=== PATIENT | male | born 1985 | race Caucasian/White ===

== ENCOUNTER 2018-02-04 01:24 | Emergency (ER) | payer OTHER ==
[~2018-02-04] VITALS: Ht 180.3 cm; Wt 81.7 kg
[~2018-02-04 01:24] MED LIST: NORCO 5-325 TA1 EACH PO
[2018-02-04] MEDS ORDERED: TRUVADA1 EAC1 (01:39)
[2018-02-04 04:36] LABS: HEMOGLOBIN 16.5 gm/dL (14.0-18.0); MCH 31.2 pg (26.0-34.0); MCHC 33.6 g/dL (28.0-37.0); MCV 92.8 fL (80.0-100.0); MPV 7.8 fl. (7.2-11.1); NUCLEATED RBCS 0 /100WBC; PLATELET COUNT* 255 thou/uL (150-400); RBC 5.28 mil/uL (4.50-6.00); RDW-CV 13.3 % (10.5-14.5); WBC 18.8 thou/uL (4.0-11.0)
[2018-02-04 04:41] LABS: CALCIUM 9.1 mg/dL (8.5-10.1); CREATININE 1.3 mg/dL (0.6-1.3); POTASSIUM 3.7 mmol/L (3.5-5.1)
[2018-02-04 04:46] LABS: ALBUMIN 3.8 g/dL (3.4-5.0); TOTAL BILIRUBIN 0.7 mg/dL (<0.1-1.0); TOTAL PROTEIN 7.4 g/dL (6.4-8.2)
[2018-02-04 05:57] LABS: ABSOLUTE LYMPHOCYTES 1.7 thou/uL (0.8-5.3); ABSOLUTE MONOCYTES 1.7 thou/uL (0.0-1.2); ABSOLUTE NEUTROPHILS 15.4 thou/uL (1.6-8.1); PLATELET ESTIMATE ADEQUATE
[2018-02-04] MEDS ORDERED: KEFLEX500 M1 PO ×2 (06:32→07:49)
[2018-02-04] MEDS ORDERED: NORCO 5-325 TA1 EACH PO ×2 (06:32→07:49)
[2018-02-04] MEDS ORDERED: FLEXERIL PO ×2 (06:32→07:49)
[2018-02-04 07:59] VITALS: BP 95/46
== END 2018-02-04 08:26 | disposition home or self-care (01) ==
LOC: M.ERS 01:24
PROVIDERS: Emergency Medicine
DX: S81.812A Laceration without foreign body, left lower leg, initial encounter (principal); S81.811A Laceration without foreign body, right lower leg, initial encounter; S30.810A Abrasion of lower back and pelvis, initial encounter; S40.212A Abrasion of left shoulder, initial encounter; S50.812A Abrasion of left forearm, initial encounter; S40.211A Abrasion of right shoulder, initial encounter; I10 Essential (primary) hypertension; V89.2XXA Person injured in unspecified motor-vehicle accident, traffic, initial encounter; Y93.89 Activity, other specified; Y92.89 Other specified places as the place of occurrence of the external cause; Y99.8 Other external cause status

== ENCOUNTER → 2018-02-13 | Outpatient (CLI) | payer OTHER ==
[~2018-02-13] MED LIST changes: +FLEXERIL PO; +KEFLEX500 M1 PO; +TRUVADA1 EAC1
== END ==
LOC: M.WC 01:01
DX: T81.33XA Disruption of traumatic injury wound repair, initial encounter (principal); T22.212A Burn of second degree of left forearm, initial encounter; T31.0 Burns involving less than 10% of body surface; T22.211A Burn of second degree of right forearm, initial encounter; T22.252A Burn of second degree of left shoulder, initial encounter; T22.251A Burn of second degree of right shoulder, initial encounter; I10 Essential (primary) hypertension; F17.200 Nicotine dependence, unspecified, uncomplicated; Y83.8 Other surgical procedures as the cause of abnormal reaction of the patient, or of later complication, without mention of misadventure at the time of the procedure; Y92.89 Other specified places as the place of occurrence of the external cause; V21.5 Motorcycle passenger injured in collision with pedal cycle in traffic accident; X08.8XXA Exposure to other specified smoke, fire and flames, initial encounter; Y93.89 Activity, other specified; Y99.8 Other external cause status

== ENCOUNTER 2018-07-30 00:31 | Emergency (ER) | payer BC ==
[~2018-07-30] VITALS: Ht 177.8 cm; Wt 82.1 kg
[2018-07-30 00:57] LABS: ABSOLUTE BASOPHILS 0.1 thou/uL (0.0-0.2); ABSOLUTE EOSINOPHILS 0.2 thou/uL (0.0-0.7); ABSOLUTE LYMPHOCYTES 2.6 thou/uL (0.8-5.3); ABSOLUTE MONOCYTES 0.9 thou/uL (0.0-1.2); ABSOLUTE NEUTROPHILS 5.2 thou/uL (1.6-8.1); EOSINOPHILS 1.8 %; HEMOGLOBIN 16.3 gm/dL (14.0-18.0); MCH 30.9 pg (26.0-34.0); MCHC 33.9 g/dL (28.0-37.0); MCV 91.1 fL (80.0-100.0); MONOCYTES 10.2 %; MPV 7.6 fl. (7.2-11.1); NUCLEATED RBCS 0 /100WBC; PLATELET COUNT* 275 thou/uL (150-400); RBC 5.27 mil/uL (4.50-6.00); RDW-CV 13.4 % (10.5-14.5); WBC 8.9 thou/uL (4.0-11.0)
[2018-07-30 01:04] LABS: ANION GAP 16 mmol/L (7-16); BUN 11 mg/dL (7-18); CALCIUM 8.9 mg/dL (8.5-10.1); CHLORIDE 99 mmol/L (98-107); CO2 20 mmol/L (21-32); GLUCOSE 66 mg/dL (70-99); POTASSIUM 3.7 mmol/L (3.5-5.1); SODIUM 135 mmol/L (136-145)
[2018-07-30 01:10] LABS: ALBUMIN 4.1 g/dL (3.4-5.0); ALKALINE PHOSPHATASE 96 U/L (46-116); MAGNESIUM 1.9 mg/dL (1.8-2.4); SGOT 34 U/L (15-37); SGPT 45 U/L (30-65); TOTAL PROTEIN 7.9 g/dL (6.4-8.2); TROPONIN-I LEVEL <0.06 ng/mL (<0.06)
[2018-07-30 01:35] VITALS: BP 129/88
--- NOTE | 2018-07-30 12:15 | EKG ---
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
== END 2018-07-30 01:35 | disposition home or self-care (01) ==
LOC: M.ERS 00:31
PROVIDERS: Emergency Medicine Emergency Medical Services
DX: R00.2 Palpitations (principal); I10 Essential (primary) hypertension; E78.00 Pure hypercholesterolemia, unspecified; F17.200 Nicotine dependence, unspecified, uncomplicated

== ENCOUNTER 2019-02-26 08:02 | Emergency (ER) | payer BC ==
[~2019-02-26] VITALS: Ht 175.3 cm; Wt 91.6 kg
[2019-02-26] MEDS ORDERED: LISINOPRIL5 MG PO (08:08)
[2019-02-26 08:36] LABS: ABSOLUTE EOSINOPHILS 0.1 thou/uL (0.0-0.7); ABSOLUTE LYMPHOCYTES 2.7 thou/uL (0.8-5.3); ABSOLUTE NEUTROPHILS 4.4 thou/uL (1.6-8.1); BASOPHILS 0.5 %; EOSINOPHILS 1.7 %; HEMATOCRIT 42.3 % (42.0-52.0); HEMOGLOBIN 14.4 gm/dL (14.0-18.0); LYMPHOCYTES 32.7 %; MCH 30.6 pg (26.0-34.0); MCV 89.8 fL (80.0-100.0); MONOCYTES 12.6 %; NUCLEATED RBCS 0 /100WBC; PLATELET COUNT* 239 thou/uL (150-400); POLYS 52.5 %; RBC 4.71 mil/uL (4.50-6.00); RDW-CV 12.8 % (10.5-14.5); WBC 8.3 thou/uL (4.0-11.0)
[2019-02-26 08:43] LABS: ANION GAP 9 mmol/L (7-16); BUN 17 mg/dL (7-18); CALCIUM 8.6 mg/dL (8.5-10.1); CHLORIDE 103 mmol/L (98-107); CO2 28 mmol/L (21-32); CREATININE 0.9 mg/dL (0.6-1.3); GLUCOSE 103 mg/dL (70-99); POTASSIUM 3.9 mmol/L (3.5-5.1); SODIUM 140 mmol/L (136-145)
[2019-02-26 09:05] LABS: ALBUMIN 3.8 g/dL (3.4-5.0); ALKALINE PHOSPHATASE 94 U/L (46-116); SGOT 21 U/L (15-37); SGPT 31 U/L (30-65); TOTAL BILIRUBIN 0.5 mg/dL (<0.1-1.0); TOTAL PROTEIN 7.3 g/dL (6.4-8.2); TROPONIN-I LEVEL <0.06 ng/mL (<0.06)
[2019-02-26] MEDS ORDERED: ACIPHEX 20 MG T20 MG PO (09:45)
[2019-02-26 10:01] VITALS: BP 145/99
--- NOTE | 2019-02-26 14:50 | EKG ---
[place] [address] ELECTROCARDIOGRAM REPORT Name: ANNE FOREMAN Room: [facility]#: [id number] Admission: 02/26/19 Attend Phys: Discharge: 02/26/19 Date of : 83 Report #: [id number] THIS REPORT FOR: //name// [facility] ED Test Date: 2019-02-26 Test Time: 08:06:12 Pat Name: ANNE LANDON Department: Room: Gender: M Manager Event: : 1985 Requested By: Ba Cardenas Order Number: [id number] MD: Dixon Blanco Measurements Intervals [place] Rate: 75 P: 42 TN: 164 QRS: 61 QRSD: 106 T: 29 QT: 392 QTc: 438 Interpretive Statements Sinus rhythm Compared to ECG 07/30/2018 00:36:43 Atrial premature complex(es) no longer present Electronically Signed On 02-26-2019 14:50:41 CDT by Dixon Blanco [email or web address] <ELECTRONICALLY SIGNED> By: Dixon Blanco MD, [facility] 02/26/19 1450 805 5 Dixon Blanco MD, FACC /EPI
== END 2019-02-26 10:04 | disposition home or self-care (01) ==
LOC: M.ERS 08:02
PROVIDERS: Emergency Medicine
DX: K21.9 Gastro-esophageal reflux disease without esophagitis (principal); I10 Essential (primary) hypertension